=== PATIENT | male | born 1965 | race Caucasian/White ===

== ENCOUNTER 2021-10-12 22:10 | Emergency (ER) | payer BC, SELFPAY ==
[2021-10-12 22:11] VITALS: BP 150/102; PULSE 83; RESP 18; TEMP 36.5; O2SAT 98
[2021-10-13] MEDS: TETANUS,DIPHTHERIA,AC PERTUSSIS ADULT (0.5 ML) BOOSTRIX IM (00:01)
--- NOTE | 2021-10-13 00:12 | ED.GENADULT ---
HPI - General Adult General Chief complaint: Wound/Laceration Stated complaint: laceration right leg Time Seen by Provider: 10/12/21 23:33 History of Present Illness HPI narrative: Patient 56-year-old gentleman who presents the emergency department with chief complaint of laceration to right thigh. 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 The patient reports that he is got a 5 cm laceration to the dorsum of the thigh patient reports bleeding is controlled states is unsure of his last tetanus shot. Patient states that he has full range of motion distal to the injury. Related Data Allergies Allergy/AdvReac Type Severity Reaction Status Date / Time No Known Allergies Allergy Verified 10/12/21 23:51 Review of Systems Review of Systems: A 10 system review of systems was completed on the patient and is negative except for what is stated in the HPI. Nursing and ancillary documentation was reviewed. Exam Narrative: GENERAL: Well-appearing, well-nourished, and in no acute distress. HEAD: Normocephalic, atraumatic. EYES: PERRLA and EOMI. ENT: Nares clear, no rhinorrhea or epistaxis. Mucous membranes moist. NECK: Supple. CHEST: Clear to auscultation. No respiratory distress. HEART: Regular rate and rhythm. No murmur heard. Normal peripheral pulses. ABDOMEN: Soft, nontender, nondistended, normal active bowel sounds. EXTREMITIES: Normal range of motion. No edema. There is a 5 cm laceration of the dorsum of the right thigh SKIN: Warm, dry, no rash. NEURO: No focal deficits. Alert and oriented x3. PSYCH: Normal mood and affect. Course Vital Signs Vital signs: Vital Signs Temperature 36.5 C 10/12/21 22:11 Pulse Rate 83 10/12/21 22:11 Respiratory Rate 18 10/12/21 22:11 Blood Pressure 150/102 H 10/12/21 22:11 Pulse Oximetry 98 10/12/21 22:11 Oxygen Delivery Room Air 10/12/21 22:11 Temperature 36.5 C 10/12/21 22:11 Pulse Rate 83 10/12/21 22:11 Respiratory Rate 18 10/12/21 22:11 Blood Pressure 150/102 H 10/12/21 22:11 Pulse Oximetry 98 10/12/21 22:11 Oxygen Delivery Room Air 10/12/21 22:11 Procedures Laceration Laceration 1: Date: 10/13/21 Time: 00:16 Site: lower extremity Side (If applicable): right Size (cm): 5 Description: linear Amount of anesthesia used (mL): 5 ====== Skin Level ====== Skin layer closed with: sana Size (cm): other (Sana) Number of sutures: 7 Technique: other (Skin sana) ====== Subcutaneous Layer ====== ====== Muscle Layer ====== ====== Tendon Layer ====== Medical Decision Making Vital Signs Vital Signs: Vital Signs Temperature 36.5 C 10/12/21 22:11 Pulse Rate 83 10/12/21 22:11 Respiratory Rate 18 10/12/21 22:11 Blood Pressure 150/102 H 10/12/21 22:11 Pulse Oximetry 98 10/12/21 22:11 Oxygen Delivery Room Air 10/12/21 22:11 Temperature 36.5 C 10/12/21 22:11 Pulse Rate 83 10/12/21 22:11 Respiratory Rate 18 10/12/21 22:11 Blood Pressure 150/102 H 10/12/21 22:11 Pulse Oximetry 98 10/12/21 22:11 Oxygen Delivery Room Air 10/12/21 22:11 Discharge Plan Discharge Clinical Impression: Laceration Patient Disposition: Home, Self-Care Condition: Stable Instructions: Antibiotic Form, Staple Care (ED), Laceration (ED) Additional Instructions: Please have the sana removed in 7 to 10 days you have a total of 7 sana in your thigh Follow-up/Referrals: PHYSICIAN,[employer] [Primary Care Provider] - Reddy Corey MD [Physician] - Time of Disposition: 00:18
== END 2021-10-13 00:32 | disposition home or self-care (01) ==
PROVIDERS: Emergency Provider Emergency Medicine
DX: S71.111A Laceration without foreign body, right thigh, initial encounter (principal); W26.8XXA Contact with other sharp object(s), not elsewhere classified, initial encounter; Z23 Encounter for immunization
CPT/HCPCS: 12002; 90471; 90715; 99282